=== PATIENT | female | born 1980 | race Caucasian/White ===

== ENCOUNTER 2021-02-28 05:33 | Inpatient (IN) | payer MEDICARE, MEDICAID ==
[~2021-02-28 05:33] MED LIST: Acetaminophen 500 MG Tab PO ONE; Celecoxib 200 MG Cap PO ONE; Scopolamine 1.5 MG Transdermal Patch TRDERM SCH
[2021-02-28] MEDS ORDERED: Dextrose 5%-Lactated Ringers 1,000 ML IV SCH (06:00)
[2021-02-28] MEDS ORDERED: cefOXitin 2 GM Vial ONE (06:51)
[2021-02-28] MEDS ORDERED: Dexamethasone 4 MG/ML SDV ONE (06:56)
[2021-02-28] MEDS ORDERED: Rocuronium 50 MG/5 ML Vial ONE (06:56)
[2021-02-28] MEDS ORDERED: Succinylcholine 200 MG/10 ML MDV ONE (06:56)
[2021-02-28] MEDS ORDERED: Neostigmine Methylsulfate 1 MG/ML 5 ML Syringe ONE (06:56)
[2021-02-28] MEDS ORDERED: Glycopyrrolate 0.2 MG/ML 5 ML MDV ONE (06:56)
[2021-02-28] MEDS ORDERED: Propofol 200 MG/20 ML SDV ONE (06:56)
[2021-02-28] MEDS ORDERED: Ondansetron 4 MG/2 ML SDV ONE (06:56)
[2021-02-28] MEDS ORDERED: fentaNYL 250 MCG/5 ML SDV ONE ×3 (06:57→08:11)
[2021-02-28] MEDS ORDERED: Lidocaine 1% 2 ML ONE (07:01)
[2021-02-28] MEDS ORDERED: cefOXitin 2 GM in Sodium Chloride 0.9% 50 ML IV ONE (07:15)
[2021-02-28] MEDS ORDERED: Ketamine 500 MG/5 ML MDV IV SCH (07:30)
[2021-02-28] MEDS ORDERED: Ketamine 18 MG in Sodium Chloride 0.9% 19.82 ML IV SCH (07:30)
[2021-02-28 09:43] LABS: CORONAVIRUS COVID-19 NAA NEGATIVE (NEGATIVE)
[2021-02-28] MEDS ORDERED: hydrOXYzine HCL 100 MG/2 ML SDV IM ONE (10:00)
[2021-02-28] MEDS ORDERED: Albuterol/Ipratropium 3.0-0.5 MG/3 ML Neb Soln INH PRN (10:39)
[2021-02-28] MEDS ORDERED: HYDROmorphone 1 MG/ML Syringe IV PRN (11:00)
[2021-02-28] MEDS ORDERED: traMADol 50 MG Tab PO PRN (11:00)
[2021-02-28] MEDS ORDERED: hydrOXYzine HCL 100 MG/2 ML SDV IM PRN (11:00)
[2021-02-28] MEDS ORDERED: Pantoprazole 40 MG Vial IVPUSH SCH (11:00)
[2021-02-28] MEDS ORDERED: Acetaminophen 500 MG Tab PO PRN (11:00)
[2021-02-28] MEDS ORDERED: Ondansetron 4 MG/2 ML SDV IVPUSH PRN (11:00)
[2021-02-28] MEDS ORDERED: diphenhydrAMINE 50 MG/ML SDV IVPUSH PRN (11:00)
[2021-02-28] MEDS ORDERED: Labetalol 20 MG/4 ML Syringe IVPUSH PRN (11:00)
[2021-02-28] MEDS ORDERED: HYDROmorphone 0.5 MG/0.5 ML Syringe IVPUSH PRN (11:00)
[2021-02-28] MEDS ORDERED: Metoclopramide 10 MG/2 ML SDV IVPUSH PRN (11:00)
[2021-02-28] MEDS: Cyclobenzaprine 10 MG Tab PO PRN ×2 (11:11→20:08)
[2021-02-28] MEDS: Acetaminophen 500 MG Tab PO SCH ×2 (11:12→18:32)
[2021-02-28] MEDS: cefOXitin 2 GM in Sodium Chloride 0.9% 50 ML IV SCH ×2 (13:33→20:09)
[2021-02-28] MEDS: buPROPion 100 MG Tab PO SCH ×2 (13:34→20:09)
[2021-02-28] MEDS: Dextrose 5%-Lactated Ringers 1,000 ML IV SCH (13:40)
[2021-02-28] MEDS ORDERED: MVI, Adult with Vitamin K 10 ML, Thiamine 200 MG, Zinc/Copper/Manganese/Selenium 1 ML i... IV SCH ×4 (16:00)
[2021-02-28] MEDS: Heparin Sodium 5,000 Units/ML Vial SUBCUT SCH (17:09)
[2021-02-28] MEDS: DULoxetine 30 MG Cap PO SCH (20:08)
[2021-03-01] MEDS: cefOXitin 2 GM in Sodium Chloride 0.9% 50 ML IV SCH ×3 (01:01→14:21)
[2021-03-01] MEDS: Dextrose 5%-Lactated Ringers 1,000 ML IV SCH (01:02)
[2021-03-01] MEDS: Acetaminophen 500 MG Tab PO SCH ×3 (03:12→19:18)
[2021-03-01] MEDS: Heparin Sodium 5,000 Units/ML Vial SUBCUT SCH ×2 (05:49→17:16)
[2021-03-01] MEDS ORDERED: Dextrose 5%-Lactated Ringers 1,000 ML IV SCH (08:00)
[2021-03-01] MEDS: buPROPion 100 MG Tab PO SCH ×3 (08:59→20:18)
[2021-03-01] MEDS: DULoxetine 30 MG Cap PO SCH ×2 (08:59→20:18)
[2021-03-01] MEDS: Celecoxib 200 MG Cap PO SCH ×2 (08:59→20:18)
[2021-03-01] MEDS: amLODIPine 5 MG Tab PO SCH (09:00)
[2021-03-01] MEDS: SCOPOLAMINE PATCH CHECK TOP SCH (09:02)
--- NOTE | 2021-03-01 09:51 | CR ---
[facility] HISTORY: Postbariatric surgery FINDINGS: Patient swallowed water-soluble contrast. Upright views of the abdomen show no evidence of extravasation or obstruction. There is a surgical drain in the left upper quadrant. There is some patchy atelectasis at the left lung base. IMPRESSION: Status post bariatric surgery No extravasation or obstruction seen
--- NOTE | 2021-03-01 11:18 | PN ---
DATE OF SERVICE: 03/01/2021 The patient is postop day 1 from a laparoscopic Edwin-en-Y gastric bypass along with liver biopsy, repair of paraesophageal diaphragmatic hernia, and excision of mediastinal lipoma. She has had no significant problems overnight. Oral intake has been satisfactory, and her upper GI x-ray looks good. Her IV rate has been turned down with good urine output, and the plan will be to advance to a step-2 diet today. She may be ready for discharge home tomorrow. Juan Carlos Canchola MD /[id number]
[2021-03-01] MEDS: oxyCODONE 5 MG Tab PO PRN ×2 (11:21→17:16)
[2021-03-01] MEDS ORDERED: Pantoprazole 40 MG Delayed-Release Granules 1 Packet PO SCH (11:30)
[2021-03-01] MEDS ORDERED: diphenhydrAMINE 25 MG Cap PO PRN ×2 (11:44→13:55)
[2021-03-01] MEDS ORDERED: MVI, Adult with Vitamin K 10 ML, Thiamine 200 MG, Zinc/Copper/Manganese/Selenium 1 ML i... IV SCH ×4 (16:00)
[2021-03-02] MEDS: Acetaminophen 500 MG Tab PO SCH (03:55)
[2021-03-02] MEDS: Heparin Sodium 5,000 Units/ML Vial SUBCUT SCH (06:05)
[2021-03-02] MEDS ORDERED: Cyanocobalamin (Vitamin B12) 1,000 MCG/ML SDV IM ONE (09:00)
[2021-03-02] MEDS: Celecoxib 200 MG Cap PO SCH (09:43)
[2021-03-02] MEDS: DULoxetine 30 MG Cap PO SCH (09:44)
[2021-03-02] MEDS: buPROPion 100 MG Tab PO SCH (09:44)
[2021-03-02] MEDS: amLODIPine 5 MG Tab PO SCH (09:44)
[2021-03-02] MEDS: SCOPOLAMINE PATCH CHECK TOP SCH (09:47)
[2021-03-02] MEDS: oxyCODONE 5 MG Tab PO PRN (10:26)
--- NOTE | 2021-03-02 10:56 | DISCH ---
ADMISSION DIAGNOSES: Morbid obesity, BMI 46; chronic nonalcoholic liver disease; lumbar stenosis; intractable chronic migraine; gastroesophageal reflux disease; depression; anxiety; chronic pain syndrome; history of bulimia nervosa. DISCHARGE DIAGNOSES: 1. Laparoscopic Edwin-en-Y gastric bypass surgery. 2. Liver biopsy. 3. Repair of diaphragmatic hernia. 4. Excision of mediastinal lipoma. POSTOPERATIVE DIAGNOSES: 1. Morbid obesity. 2. Hepatomegaly. 3. Diaphragmatic hernia. 4. Mediastinal lipoma. HISTORY: Brittany is a pleasant 40-year-old female with longstanding history of morbid obesity. After preoperative evaluation and discussion of possible risks and possible complications, she wished to proceed with surgical procedure. HOSPITAL COURSE: Brittany had her surgery on 02/28/2021. She had no operative complications. On postoperative day #1, her upper GI was normal. She was started on a step 2 gastric bypass diet. Pain was managed with energy protocol. She had no complications. On postoperative day 2, IV did infiltrate. She had an allergic reaction to cefoxitin with her arm swelling and extensive itching. She was given 1 dose of Benadryl and the symptoms ceased. Oral intake for the past 24 hours was 1680. Urine output 1500. SHANTE drain put out 90 mL of a light red drainage prior to being discharged. She received a vitamin B12 1000 mcg IM injection. Brittany was able to be discharged to home without any complications on postoperative day #2. PHYSICAL EXAMINATION: GENERAL: Brittany is a pleasant 40-year-old female. VITAL SIGNS: Height is 5 feet 7 inches, weight is 296 pounds, BMI 46.4. TPR is 97.9, 86, 18, blood pressure 130/86. HEENT: Negative. NECK: Supple. HEART: Regular rate and rhythm. LUNGS: Clear. ABDOMEN: Trocar sites look good. Sutures intact. SHANTE drain will be removed. Abdominal binder is on. EXTREMITIES: Without peripheral edema. DISPOSITION: Discharged to home. CONDITION: Stable and improving. APPOINTMENTS: Followup appointment with Maria Guadalupe Burt PA-C, at [facility] on 03/08/2021 at 9 a.m. HOME MEDICATIONS: Celebrex 200 mg p.o. b.i.d., #28; Zofran ODT 4 mg p.o. q.4 hours p.r.n. nausea, #30; Tylenol 1000 mg every 6 hours scheduled p.o. for pain. She is to continue her home medication, Norvasc 10 mg p.o. daily, Imitrex 100 mg p.o. as directed p.r.n. migraine headache, Imitrex 0.5 subcu every 1 hour as directed p.r.n. migraine headaches, omeprazole 20 mg at bedtime, Cymbalta 60 mg p.o. b.i.d., Flexeril 10 mg p.o. t.i.d. p.r.n. muscle relaxant, and bupropion 100 mg p.o. t.i.d. DIET: Step 2 gastric bypass diet with no cereal for 2 weeks until 03/15/2021. Drink 8 to 10 glasses of water a day and a goal of 65 g of protein. ACTIVITY: No lifting greater than 10 pounds for 2 weeks. OTHER ACTIVITY: Walk 6 times daily inside your home. Driving: Do not drive for 1 week. Shower/bathing: May shower. Keep operative site clean and dry. Wound incision care, wear abdominal binder for 2 weeks as tolerated. May wear longer if comfortable. Notify provider if any fever, increased pain, swelling, redness, drainage, nausea, or vomiting. SPECIAL INSTRUCTIONS: 1. Use incentive spirometer 10 times every hour while awake for 1 week. 2. On your way home, walk 2 minutes for every 1 hour if you are riding in the car. 3. Write down liquid and protein intake. /[id number]
--- NOTE | 2021-03-02 11:14 | OR ---
DATE OF PROCEDURE: 02/28/2021 SURGEON: Juan Carlos Canchola MD PREOPERATIVE DIAGNOSIS: Morbid obesity. POSTOPERATIVE DIAGNOSES: 1. Morbid obesity. 2. Marked hepatomegaly. 3. Paraesophageal diaphragmatic hernia. 4. Mediastinal lipoma. OPERATIVE PROCEDURES: 1. Laparoscopic Edwin-en-Y gastric bypass with long limb gastroenterostomy (36803). 2. Levon-Cut needle liver biopsy (40905). 3. Repair of paraesophageal diaphragmatic hernia (23799). 4. Excision of mediastinal lipoma (28242). ANESTHESIA: General. COUNSELOR AIDE: Maria Guadalupe Burt PA-C. INDICATIONS FOR PROCEDURE: This is a 40-year-old presenting with longstanding morbid obesity and increasingly significant comorbidities. After preoperative evaluation and discussion, she wished to proceed with a gastric bypass procedure. Potential risks of the procedure including bleeding, infection, leaks from various GI tract closures, problems with bowel obstruction over time, as well as possibility of cardiopulmonary, septic, or hemorrhagic complications leading to were discussed, and the patient wishes to proceed. DETAILS OF PROCEDURE: The patient was taken to the operating room, and after general endotracheal anesthetic was induced, was placed in a lithotomy position and the abdomen prepped and draped. 15 cm inferior and 5 cm left of the xiphoid process, a transverse incision was made and the peritoneal cavity entered under direct vision with an Optiview trocar, inflated to 15 mmHg pressure with CO2. Laparoscope was then reinserted. No underlying trocar insertion site injuries were seen. Following this, 5 additional trocars were placed across the upper and mid abdomen, and bilateral transversus abdominis plane blocks were placed. Liver was noted to be markedly enlarged and fatty infiltrated. Levon-Cut needle biopsies were obtained from left lobe of liver, and minimal bleeding from the biopsy sites was controlled with electrocautery. The omentum was then divided in the midline up to the level of the transverse colon. This allowed identification of the small bowel to the ligament of Treitz. Small bowel was then traced out 125 cm distal to that point, where it was divided transversely with a DENAE stapler. The small bowel was then traced out additional 175 cm and a [id number] enteroenterostomy was accomplished with an internal firing of the Endo-DENAE 60 mm stapler. Common opening was then closed transversely with the same stapler and the angles anastomosed, mesenteric defect approximated with some 0 Ethibond stitch along with 4 mL of fibrin sealant. The divided end of the Edwin-limb was able to be brought up to an antecolic position to the level of the gastroesophageal junction without tension. The liver was then retracted anteriorly. The patient was noted to have a moderate-sized paraesophageal diaphragmatic hernia and that contained some omentum, perigastric fat, and gastric fundus. The hernia was reduced and the peritoneum overlying was incised and reflected downward. During the course of the dissection, a mediastinal lipoma was encountered and this was excised to facilitate a more adequate repair of the diaphragmatic hernia which was then accomplished with 0 Ethibond suture reinforced with PTFE pledgets in an anterior location. The gastrointestinal catheter was then inflated to 15 mL and pulled up snugly against the EG junction. Gastric wall over the apex balloon was then marked with electrocautery and balloon catheter deflated and pulled up from the esophagus. The lesser omental tissue adjacent to the gastric cardia was then divided allowing dissection behind the stomach at that level. Pouch formation was initiated with a transverse firing of the DENAE stapler at the level of the cauterized meg at the gastric cardia and completed up through the angle of His with additional DENAE firings. Upon completion of the pouch, both staple lines appeared to be intact. Anvil of a 25 mm EEA stapler was attached to Paulding sump-type tube. The latter was brought down through the mouth and taken out through a small opening in the gastric pouch, allowing the anvil likewise to be pulled down to within the gastric pouch. The divided end of the Edwin limb was then opened and main body of the EEA stapler was passed several centimeters into the lumen of the small bowel, brought up to the anvil and united with it, thus creating a gastrojejunostomy. Upon removal of the stapler, double donuts of mucosa were noted within it. Small bowel was then closed off with a vascular staple line. Gastrojejunostomy was reinforced with 3-0 Vicryl seromuscular stitch along with fibrin sealant. Leak test was undertaken with injection of 120 mL of air in the gastric pouch while it was submerged with a cefoxitin-containing saline solution. No leaks were identified. A single Fernando-Sage drain was taken out through the left lateral trocar site and positioned adjacent to the gastric cardia and from there up into the splenic fossa. The trocars were then sequentially removed and the peritoneal cavity deflated. Incision was closed with a 4-0 Vicryl skin stitch as was used to fix the drain and the patient was taken to the recovery room in satisfactory condition. Physician doctor assistant, Maria Guadalupe Burt, played an essential role in assisting in this case, helping to position the patient, retract structures as needed, as well as suturing and cutting sutures when indicated. Her presence improved patient safety and decreased operative time. Juan Carlos Canchola MD /[id number]
== END 2021-03-02 10:32 | disposition home or self-care (01) | DRG 621 ==
LOC: JP.SDS 05:33 → JP.MS 05:33 → EDSTATUS 07:15 → JP.MS 10:00
PROVIDERS: ADMIT Surgery; ATTEND Surgery
PROC: 0D164ZA Bypass Stomach to Jejunum, Percutaneous Endoscopic Approach (ICD-10-PCS; principal; 2021-02-28)
PROC: 0FB24ZX Excision of Left Lobe Liver, Percutaneous Endoscopic Approach, Diagnostic (ICD-10-PCS; 2021-02-28)
PROC: 0BQT4ZZ Repair Diaphragm, Percutaneous Endoscopic Approach (ICD-10-PCS; 2021-02-28)
PROC: 0JB63ZZ Excision of Chest Subcutaneous Tissue and Fascia, Percutaneous Approach (ICD-10-PCS; 2021-02-28)
DX: E66.01 Morbid (severe) obesity due to excess calories (principal); Z68.42 Body mass index [BMI] 45.0-49.9, adult; R16.0 Hepatomegaly, not elsewhere classified; K44.9 Diaphragmatic hernia without obstruction or gangrene; D17.1 Benign lipomatous neoplasm of skin and subcutaneous tissue of trunk; K21.9 Gastro-esophageal reflux disease without esophagitis; F41.9 Anxiety disorder, unspecified; F32.A Depression, unspecified; T36.1X5A Adverse effect of cephalosporins and other beta-lactam antibiotics, initial encounter; L29.9 Pruritus, unspecified
CPT/HCPCS: 0241U; 36415; 74240; 81025; 86850; 86900; 86901; A9270-GY; C9113; J0171; J0330; J0694; J1100; J1644; J2405; J2704; J2710; J2795; J3010; J3410; J3411; J3420; J3490; J7121